=== PATIENT | female | born 1935 | race Caucasian/White ===

== ENCOUNTER 2019-09-11 19:24 | Inpatient (IN) | payer MEDICARE, OTHER ==
[~2019-09-11] VITALS: Ht 144.8 cm; Wt 103.3 kg
--- NOTE | 2019-09-11 22:35 | NUR ---
Pt. arrived to the floor via ems stretcher. Pt. is A&OX3, assessment comlete. INT to rt. hand patent. Pt. denies pain at this time. Call light within reach.
[2019-09-11 23:07] VITALS: BP 153/86; PULSE 90; TEMP 97.5
[2019-09-11] MEDS ORDERED: ZYLOPRIM 100MG100 MG PO (23:41)
[2019-09-11] MEDS ORDERED: AVAPRO TAB150 MG/TAB PO (23:41)
[2019-09-11] MEDS ORDERED: LIPITOR 10MG10 MG PO (23:41)
[2019-09-11] MEDS ORDERED: COREG 6.256.25 MG/TA PO (23:41)
[2019-09-11] MEDS ORDERED: PRIL40 PO (23:41)
[2019-09-11] MEDS ORDERED: ALLEGRA-D 24HR1 T24 PO (23:42)
[2019-09-11] MEDS ORDERED: EPA FISH OIL1 SGL PO (23:42)
[2019-09-11] MEDS ORDERED: B-121000 MCG PO (23:42)
[2019-09-11] MEDS ORDERED: MULTI VITAMINS1 TAB PO (23:44)
[2019-09-11] MEDS ORDERED: SENNA-LAX8.6 MG PO (23:44)
[2019-09-11] MEDS ORDERED: VITAMIN D31000 I1 PO (23:44)
[2019-09-11] MEDS ORDERED: NYSTATIN POWDER30 GM TOP (23:45)
[2019-09-11] MEDS ORDERED: FLONASEALLERGY NS (23:45)
[2019-09-11] MEDS ORDERED: ANUSOL-HC2.5% RC (23:46)
[2019-09-11] MEDS ORDERED: STOOL SOFTENER240 M1 PO (23:47)
[2019-09-11] MEDS ORDERED: ADVIL200 MG PO (23:47)
[2019-09-11] MEDS ORDERED: VALIUM 5MG T5 MG/TAB PO (23:47)
[2019-09-11] MEDS ORDERED: TYLENOL 325MG325 MG PO (23:48)
[2019-09-11] MEDS ORDERED: IMODIUM 2MG CAPS2 MG PO (23:48)
[2019-09-11] MEDS ORDERED: MIRALAX PA17 GM/Dose PO (23:48)
[2019-09-12 04:00] VITALS: BP 177/77; PULSE 87; TEMP 97.6
[2019-09-12 05:31] LABS: MUCOUS Present /lpf; PH 5 (5-8); SQUAMOUS EPITHELIAL 0-2 /hpf; URINE APPEARANCE Clear; URINE BACTERIA None Seen /hpf; URINE BILIRUBIN Negative (NEGATIVE); URINE BLOOD 2+ (NEGATIVE); URINE COLOR Yellow; URINE GLUCOSE Negative (NEGATIVE); URINE KETONE Trace (NEGATIVE); URINE LEUKOCYTE ESTERASE Negative (NEGATIVE); URINE NITRATE Negative (NEGATIVE); URINE PROTEIN(semi-quant) 1+ (NEGATIVE); URINE UROBILINOGEN Negative (NEGATIVE)
[2019-09-12 05:32] LABS: COLLECTION METHOD CLEAN CATCH
[2019-09-12 06:09] LABS: BASO % 0.4 % (0.0-2.0); EOS # 0.3 (0.0-0.7); EOS % 3.6 % (0-4.0); GRAN # 6.5 (1.4-6.5); GRAN % 75.4 % (42.2-75.2); LYMPH # 1.2 (1.2-3.4); LYMPH % 14.4 % (20.0-51.0); MEAN CELL VOLUME 103 fl (80.0-100.0); MEAN CORPUSCULAR HGB CONC 31 g/dl (33.0-37.0); MEAN PLATELET VOLUME 11.6 fl (7.4-10.4); MONO # 0.5 (0.1-0.6); MONO % 5.8 % (1.7-9.3); PLATELET COUNT 200 K/mm3 (130-400); RED BLOOD COUNT 2.88 M/mm3 (4.10-5.30); REDCELL DISTRIBUTION WIDTH-CV 14.7 % (11.5-14.5)
[2019-09-12 06:10] LABS: HEMATOCRIT 29.7 % (37.0-47.0); HEMOGLOBIN 9.2 g/dl (12.5-16.0); MEAN CORPUSCULAR HEMOGLOBIN 32 pg (27.0-31.0)
[2019-09-12 06:17] LABS: ALBUMIN 3.2 gm/dL (3.5-5.0); BILIRUBIN,TOTAL 0.4 mg/dL (0.0-1.0); CALCIUM 9.7 mg/dL (8.4-10.2); CREATININE, serum 1.8 (0.52-1.25); POTASSIUM 3.6 mmol/L (3.4-5.0); TOTAL PROTEIN 6.6 gm/dL (6.4-8.2)
[2019-09-12 06:18] LABS: CHOLESTEROL RISK RATIO 2.9
[2019-09-12 07:10] VITALS: BP 162/71; PULSE 97; TEMP 98.4
--- NOTE | 2019-09-12 10:18 | NUR ---
Initial visit; Patient thanked Accident Report Clerk for looking in on her and offering God's blessings and to keep her in Accident Report Clerk's prayers.
--- NOTE | 2019-09-12 13:48 | NUR ---
I contacted both the patient's pharmacy ([facility] [phone]) and primary care clinic ([facility] [phone]) and attempted to clarify drug allergies. Patient has had multiple prescriptions filled for Macrodantin, Levaquin, Omnicef, and doxycycline in recent years, with no adverse reactions noted for any of these.
--- NOTE | 2019-09-12 14:44 | NUR ---
Ashley with [facility] contacts social scientist and advises that they are currently providing skilled home health.
--- NOTE | 2019-09-12 15:46 | NUR ---
Radiology Transporter met with patient and patient's son Yunior (ph#[phone]) and daughter in law Sweet (ph#[phone]) to discuss discharge planning. Patient lives alone in [place], [place] and sees Dr. Nico Arceo for primary care also in [place]. Patient has medications and oxygen delivered by [facility] with no difficulties. Patient has a CPAP and walker that she utilizes. Patient reports she is somewhat independent with ADLS however does have assistance with bathing from [facility] home services. Per patient, [facility] provides assistance with setting up medications, ordering medications, and light housekeeping as well. Patient states her DPOA-HC is her son, Yunior although she did not bring copies with her. Yunior states he can bring in copy tomorrow. Patient states her PCP, Dr. Arceo had sent a referral to [facility] for in home PT since [facility] does not provide that service. WASHINGTON contacted [facility] who advised they had received the referral but were trying to get in contact with the patient or her son. WASHINGTON will send discharge orders once completed. WASHINGTON also contacted [facility] to confirm patient receives services from them. WASHINGTON will send discharge orders to [facility] once completed. SW to continue to follow.
[2019-09-12 15:55] VITALS: BP 172/91; PULSE 92; TEMP 98.4
--- NOTE | 2019-09-12 18:21 | NUR ---
Patient has visitors in room upon arrival. no complaint of pain. dinner with clear liquids. no needs further stated. call light within reach. Reported of to Stacey LEVY.
--- NOTE | 2019-09-12 18:30 | NUR ---
Patient has been doing well today. She stated she feels weak but is feeling better. No complaints of pain today. Tylenol given once for when she was getting the PICC line and was going to have to lay still. No complaints of nausea with her clear liquids diet. She did not have any bowel movements today. No other changes at this time. Call light within reach.
[2019-09-12 19:45] VITALS: BP 139/76; PULSE 72; TEMP 98.3
--- NOTE | 2019-09-12 22:10 | NUR ---
Has loose brown stool, sent for OB, result negative.
[2019-09-12 23:16] VITALS: BP 157/85; PULSE 81; TEMP 97.4
[2019-09-13] VITALS (8 sets, daily range): BP systolic 155–195; BP diastolic 65–113; PULSE 78–97; TEMP 97.6–98.4
--- NOTE | 2019-09-13 02:41 | NUR ---
Transferred to [facility] with one assist, does well. Bilateral lower legs with edema. IV to right PICC, infusing without problem.
[2019-09-13 06:25] LABS: BASO % 0.4 % (0.0-2.0); EOS # 0.4 (0.0-0.7); EOS % 4.5 % (0-4.0); GRAN # 6.1 (1.4-6.5); GRAN % 72.8 % (42.2-75.2); LYMPH # 1.2 (1.2-3.4); LYMPH % 14.4 % (20.0-51.0); MEAN CELL VOLUME 105 fl (80.0-100.0); MEAN CORPUSCULAR HGB CONC 31 g/dl (33.0-37.0); MEAN PLATELET VOLUME 12.4 fl (7.4-10.4); MONO # 0.6 (0.1-0.6); MONO % 7.7 % (1.7-9.3); PLATELET COUNT 195 K/mm3 (130-400); RED BLOOD COUNT 2.63 M/mm3 (4.10-5.30); REDCELL DISTRIBUTION WIDTH-CV 15.1 % (11.5-14.5)
[2019-09-13 06:33] LABS: CALCIUM 9.4 mg/dL (8.4-10.2); CREATININE, serum 1.52 (0.52-1.25); POTASSIUM 3.5 mmol/L (3.4-5.0)
[2019-09-13 06:33] LABS: HEMATOCRIT 27.5 % (37.0-47.0); HEMOGLOBIN 8.5 g/dl (12.5-16.0); MEAN CORPUSCULAR HEMOGLOBIN 32 pg (27.0-31.0)
--- NOTE | 2019-09-13 08:00 | NUR ---
SEE MORNING ASSESSMENT.
--- NOTE | 2019-09-13 18:20 | NUR ---
PATIENT CALLED OUT STATING THAT SHE FEELS LIKE SHE CAN'T QUITE CATCH HER BREATH AFTER RECEIVING THE PRN HYDRALAZINE MEDICATION FOR HER BLOOD PRESSURE READING OF 195/95. PATIENT REPOSITIONED IN BED. VITAL SIGNS RECHEKED. BLOOD PRESSURE NOW 178/78. RESPIRATORY THERAPY CALLED AND PRN BREATHING TREATMENT REQUESTED. CALLED AND NOTIFIED OF SITUATION. PATIENT ALSO STATES THAT THE LAST TIME AN INCIDENT LIKE THIS HAPPENED AT REHAB, A BREATHING TREATMENT AND ANXIETY MEDICATION HELPED. NO ORDERS GIVEN AT THIS TIME.
--- NOTE | 2019-09-13 19:00 | NUR ---
PATIENT STATES THAT SHE FEELS MUCH BETTER AFTER HER BREATHING TREATMENT AND ANXIETY MEDICATION. PATIENT ENCOURAGED TO CALL FOR BREATHING TREATMENTS IF SHE STARTS TO FEEL LIKE SHE CAN'T CATCH HER BREATH AGAIN.
--- NOTE | 2019-09-13 19:30 | NUR ---
REPORT GIVEN TO CAM SMITH.
--- NOTE | 2019-09-13 21:00 | NUR ---
Patient in bed. B/P remains elevated, 175/65, medicated with Hydralazine 10mg IVP now. Patient is alert and oriented x4. Urine is light yellow, denies abdominal pain or diarrhea. Has a right PICC with IVF infusing without problem. Bilateral lower edema remains. O2 at 3L/NC.
--- NOTE | 2019-09-13 21:52 | NUR ---
Complains of pain to shoulders, medicated with Tylenol 650mg po now.
[2019-09-14] VITALS: BP 153/58; PULSE 84; TEMP 98.4
[2019-09-14 04:10] VITALS: BP 168/66; PULSE 96; TEMP 98.4
--- NOTE | 2019-09-14 05:00 | NUR ---
Lab work drawn from right PICC. Has rested well with CPAP this shift.
[2019-09-14 06:33] LABS: BASO % 0.5 % (0.0-2.0); EOS # 0.6 (0.0-0.7); EOS % 7.3 % (0-4.0); GRAN # 6.1 (1.4-6.5); GRAN % 71.8 % (42.2-75.2); LYMPH # 0.9 (1.2-3.4); MEAN CELL VOLUME 103 fl (80.0-100.0); MEAN CORPUSCULAR HGB CONC 31 g/dl (33.0-37.0); MEAN PLATELET VOLUME 11.8 fl (7.4-10.4); MONO # 0.8 (0.1-0.6); MONO % 9.2 % (1.7-9.3); PLATELET COUNT 203 K/mm3 (130-400); RED BLOOD COUNT 2.93 M/mm3 (4.10-5.30)
[2019-09-14 06:49] LABS: HEMATOCRIT 30.1 % (37.0-47.0); HEMOGLOBIN 9.4 g/dl (12.5-16.0); MEAN CORPUSCULAR HEMOGLOBIN 32 pg (27.0-31.0)
[2019-09-14 06:53] LABS: CALCIUM 9.8 mg/dL (8.4-10.2); CREATININE, serum 1.4 (0.52-1.25); MAGNESIUM 1.4 mg/dL (1.6-2.3); POTASSIUM 3.3 mmol/L (3.4-5.0)
[2019-09-14 07:42] VITALS: BP 158/71; PULSE 89; TEMP 97.8
--- NOTE | 2019-09-14 10:00 | NUR ---
Patient alert and oriented, answers questions appropriately. See assessment. No c/o abdominal pain or cramping, abdomen soft, non tender, non distended. Bowel sounds active x4 quads. +Flatus. No c/o flank or back pain. No c/o urinary burning, frequency or hesitancy. No other c/o at this time.
[2019-09-14 11:27] VITALS: BP 155/81; PULSE 88; TEMP 97.3
[2019-09-14 16:15] VITALS: BP 172/75; PULSE 82; TEMP 98.3
--- NOTE | 2019-09-14 16:31 | NUR ---
WASHINGTON consulted for change of plan for DC. WASHINGTON met with patient about care, patient wants to go to [facility]. Patient indicated that she would like a screen. WASHINGTON faxed referral to
[2019-09-14 19:44] VITALS: BP 159/91; PULSE 81; TEMP 98.2
--- NOTE | 2019-09-14 22:35 | NUR ---
COMPLAINS OF RT SHOULDER PAIN, MEDICATED WITH TYLENOL 650MG PO NOW. UP TO BATHROOM WITH ONE ASSIST, GAIT STEADY. WEARS OXYGEN CONTINUOUSLY AT 3L/NC. NO REPORT OF ANXIETY AT THIS TIME. NO STOOLS AT THIS TIME.
[2019-09-15 00:53] VITALS: BP 179/81; PULSE 74; TEMP 96.3
--- NOTE | 2019-09-15 01:19 | NUR ---
APRESOLINE 10MG IVP FOR SBP 179.
[2019-09-15 04:14] VITALS: BP 159/75; PULSE 86; TEMP 98.2
--- NOTE | 2019-09-15 06:00 | NUR ---
Patient reports feeling smothered with CPAP, switched to NC at 3L/NC.
[2019-09-15 06:56] VITALS: BP 178/76; PULSE 95; TEMP 98.4
[2019-09-15 07:18] LABS: BASO % 0.5 % (0.0-2.0); EOS # 0.7 (0.0-0.7); EOS % 8.7 % (0-4.0); GRAN # 5.2 (1.4-6.5); HEMATOCRIT 30.2 % (37.0-47.0); HEMOGLOBIN 9.4 g/dl (12.5-16.0); LYMPH # 1.1 (1.2-3.4); LYMPH % 14.3 % (20.0-51.0); MEAN CELL VOLUME 104 fl (80.0-100.0); MEAN CORPUSCULAR HEMOGLOBIN 32 pg (27.0-31.0); MEAN CORPUSCULAR HGB CONC 31 g/dl (33.0-37.0); MEAN PLATELET VOLUME 12.3 fl (7.4-10.4); MONO # 0.7 (0.1-0.6); MONO % 9.2 % (1.7-9.3); PLATELET COUNT 202 K/mm3 (130-400); RED BLOOD COUNT 2.91 M/mm3 (4.10-5.30); REDCELL DISTRIBUTION WIDTH-CV 15.3 % (11.5-14.5)
[2019-09-15 07:37] LABS: CALCIUM 9.8 mg/dL (8.4-10.2); CREATININE, serum 1.84 (0.52-1.25); MAGNESIUM 2.1 mg/dL (1.6-2.3); POTASSIUM 3.9 mmol/L (3.4-5.0)
--- NOTE | 2019-09-15 09:30 | NUR ---
Patient alert and oriented, answers questions appropriately. See assessment. No c/o abdominal pain or discomfort. Abdomen soft, non tender, non distended. Bowel sounds active x4 quads. +Flatus. No c/o urinary burning, frequency or hesitancy. No other c/o at this time.
--- NOTE | 2019-09-15 10:45 | NUR ---
Jazmine, at [facility], reports that they are able to accept the patient and that the patient's PCP (Dr. Arceo) will follow. WASHINGTON informed the patient. The patient also reports that she would prefer to go, via ambulance, and is aware and agreeable to private pay. The patient is to discharge today, 09/15, to [facility]. Transportation was scheduled for 1300, via [facility]. WASHINGTON informed the patient, patient's RN, Jazmine at [facility], and her son (Yunior), via phone. They were all in agreeance to the time. WASHINGTON also presented and explained the IM form to the patient. The patient verbalized understanding, signed, and she was provided a copy. No additional needs at this time.
[2019-09-15] MEDS ORDERED: NORVASC 5MG5 MG/TAB PO (11:20)
[2019-09-15 11:21] VITALS: BP 178/76; PULSE 95; TEMP 98.4
[2019-09-15] MEDS ORDERED: FLAGYL500 MG PO (11:21)
[2019-09-15 12:00] VITALS: BP 182/72; PULSE 89; TEMP 99.3
--- NOTE | 2019-09-15 13:32 | NUR ---
Patient transferred to [facility] via EMS at 1330. Report called. Transferred with PICC in place.
== END 2019-09-15 13:30 | disposition swing bed (61) | DRG 392 ==
LOC: SURG 19:24
PROVIDERS: Nurse Practitioner Family; Physician Assistant; ADMIT Hospitalist
PROC: 02HV33Z Insertion of Infusion Device into Superior Vena Cava, Percutaneous Approach (ICD-10-PCS; principal; 2019-09-11)
DX: K57.92 Diverticulitis of intestine, part unspecified, without perforation or abscess without bleeding (principal); J96.11 Chronic respiratory failure with hypoxia; N20.1 Calculus of ureter; N17.9 Acute kidney failure, unspecified; E78.5 Hyperlipidemia, unspecified; N18.9 Chronic kidney disease, unspecified; E11.22 Type 2 diabetes mellitus with diabetic chronic kidney disease; N13.9 Obstructive and reflux uropathy, unspecified; J44.9 Chronic obstructive pulmonary disease, unspecified; N28.89 Other specified disorders of kidney and ureter; G47.33 Obstructive sleep apnea (adult) (pediatric); K21.9 Gastro-esophageal reflux disease without esophagitis; E66.9 Obesity, unspecified; E83.42 Hypomagnesemia; E87.6 Hypokalemia; F41.9 Anxiety disorder, unspecified; D63.1 Anemia in chronic kidney disease; I12.9 Hypertensive chronic kidney disease with stage 1 through stage 4 chronic kidney disease, or unspecified chronic kidney disease; I27.81 Cor pulmonale (chronic); E11.43 Type 2 diabetes mellitus with diabetic autonomic (poly)neuropathy; K31.84 Gastroparesis; R53.81 Other malaise; Z87.891 Personal history of nicotine dependence; Z88.0 Allergy status to penicillin; Z88.2 Allergy status to sulfonamides; Z88.6 Allergy status to analgesic agent; Z88.5 Allergy status to narcotic agent
CPT/HCPCS: 99222-AI; 99223-AI; 99231-AI; 99232-AI; 99239; C1751; C1892; C9113; J0360; J2185; J3475; J3480; J7030; J7120